=== PATIENT | female | born 1995 | race Caucasian/White ===

== ENCOUNTER 2016-11-22 04:35 | Observation (INO) ==
[2016-11-22] MEDS ORDERED: Ringers Solution, Lactated 1,000 ML ONE (04:53)
[2016-11-22] MEDS ORDERED: Indomethacin 25 MG CAPSULE PO ONE (04:57)
[2016-11-22] MEDS ORDERED: Betamethasone Acet/SodPhos 6 MG/ML MDV IM ONE (04:59)
[2016-11-22] MEDS ORDERED: Betamethasone Acet/SodPhos 6 MG/ML MDV IM SCH (05:00)
[2016-11-22] MEDS ORDERED: Magnesium Sulfate 2 GM in D5% in Water 100 ML IVPB ONE (05:13)
[2016-11-22] MEDS ORDERED: Magnesium Sulfate 20 gm/500mL 20 GM/500 ML IV.SOLN IVC SCH (05:15)
[2016-11-22 05:20] LABS: Basophils % 0.1 %; Eosinophils # 0.1 K/mcL (0.0-0.6); Eosinophils % 0.5 %; Hemoglobin 10.5 g/dL (11.5-15.4); Immature Granulocytes % 0.7 % (0-4); Lymphocytes # 1.7 K/mcL (0.6-4.6); Lymphocytes % 8.1 %; Mean Corpuscular Volume 88.5 fL (83.0-100.0); Monocytes # 1.2 K/mcL (0.0-1.3); Monocytes % 5.3 %; Neutrophils # 18.4 K/mcL (1.6-8.9); Platelet Count 373 K/mcL (140-400); Red Blood Count 3.39 M/mcL (3.82-4.97); Red Cell Distribution Width 12.3 % (11.5-14.5); Segmented Neutrophils % 85.3 %
--- NOTE | 2016-11-22 05:23 | OB/GYN History & Physical ---
Date of Encounter: 11/22/16 Time of Encounter: 04:56 Assessment and Plan (1) labor Current visit: Yes Status: Acute will give BMZ, Mg for neuroprotection, Indocin for tocolysis, continue HR monitoring, draw GBS, GC/C, urine culture will contact [facility] for transfer given gestational age History of Present Illness HPI: Ms. Montoya is a 21 year old female @ 29+0 weeks who presents to the office with complaints of abd pain and bleeding. She does not report LOF, feels good FM , she reports that she used cocaine late in the evening yesterday. She also smokes marijuana and cigarettes. FHR @ 145/mod delon/+accels, non rec delon decels. Past Med Surg Social Fam HX - Past Medical History Medical history: non-contributory Psychiatric history: anxiety, depression, prior suicide attempt, other (Cutting/ self-mutilation) - Social History Smoking Status: Current every day smoker Smokeless Tobacco Status: No Alcohol use: none Drug use: cocaine, IV Drug Use Obstetrical History - Pregnancies : 1 Para: 0 Medications and Allergies Cyclobenzaprine [Flexeril] 10 mg PO TID PRN #0 tablet 01/01/16 [Rx] FLUoxetine HCl [Prozac] 20 mg PO DAILY #30 capsule 01/01/16 [Rx] Promethazine [Phenergan] 25 mg PO TID PRN #0 tablet 01/01/16 [Rx] Quetiapine Fumarate [Seroquel] 100 mg PO HS PRN #30 tablet 01/01/16 [Rx] hydrOXYzine pamoate [HydrOXYzine Pamoate] 50 mg PO TID PRN #90 capsule 01/01/16 [Rx] Allergies Penicillins Adverse Reaction (Verified 01/13/15 21:25) Rash Sulfa (Sulfonamide Antibiotics) Adverse Reaction (Verified 01/13/15 21:25) Rash Review of System OB All systems PM: reviewed and no additional remarkable complaints except as stated Exam - Constitutional Constitutional: no acute distress - HEENT HEENT: Normocephaly - Neck Neck exam: supple - Lungs Respiratory exam: CTAB - Cardiovascular Cardiovascular exam: RRR - Abdomen Abdomen: Present: gravid, non tender - Cervix Dilation: 1 (no blood noted in the vault) Effacement: 90 Station: -2 Results Result Diagrams: 11/22/16 04:45 All other labs normal.
[2016-11-22 05:43] LABS: Alanine Aminotransferase 121 Units/L (0-55); Albumin 2.7 g/dL (3.5-5.0); Albumin/Globulin Ratio 0.6 (1.1-2.2); Alkaline Phosphatase 210 Units/L (38-126); Aspartate Amino Transferase 79 Units/L (5-34); BUN/Creatinine Ratio 12 (6-26); Bilirubin,Total 1.8 mg/dL (0.2-1.2); Blood Urea Nitrogen 7 mg/dL (7-20); Calcium 9.1 mg/dL (8.6-10.8); Carbon Dioxide 23 mEq/L (19-29); Chloride 106 mEq/L (98-109); Globulin 4.3 g/dL (2.4-3.5); Glucose 78 mg/dL (70-99); Osmolality,Calculated 279 (280-300); Potassium 3.4 mEq/L (3.5-4.5); Sodium 136 mEq/L (136-145); eGFR For African Americans > 60 (> 60); eGFR For Non-African Americans > 60 (> 60)
[2016-11-22] MEDS ORDERED: Magnesium Sulfate 20 gm/500mL 20 GM/500 ML IV.SOLN ONE (05:50)
[2016-11-22] MEDS ORDERED: Indomethacin 25 MG CAPSULE PO STA (06:13)
== END 2016-11-22 06:37 | disposition short-term general hospital (02) ==
LOC: 1NENULAB
PROVIDERS: ADMIT Student in an Organized Health Care Education/Training Program; ATTEND Student in an Organized Health Care Education/Training Program